=== PATIENT | female | born 1965 | race African-American/Black ===

== ENCOUNTER 2017-07-30 10:24 | Day surgery (SDC) | payer MEDICARE, OTHER ==
[2017-07-29 12:14] VITALS: BMI 30.4
--- NOTE | 2017-07-30 08:19 | P.GSHP ---
History of Present Illness H&P Date: 07/30/17 CHIEF COMPLAINT: GERD and colon screen HISTORY OF PRESENT ILLNESS: The patient is a 51-year-old female who presents reports gastroesophageal reflux disease and need for colon screen. Upper and lower endoscopy were offered for further evaluation and management. PAST MEDICAL HISTORY: Please see list. PAST SURGICAL HISTORY: Please see list. MEDICATIONS: Please see list. ALLERGIES: Please see list. SOCIAL HISTORY: No illicit drug use FAMILY HISTORY: No reports of Crohn disease or ulcerative colitis. REVIEW OF ORGAN SYSTEMS: CONSTITUTIONAL: No reports of fevers or chills. GI: Denies any blood in stools or constipation. PHYSICAL EXAM: VITAL SIGNS: Stable GENERAL: Well-developed pleasant in no acute distress. HEENT: No scleral icterus. Extraocular movements grossly intact. Moist buccal mucosa. NECK: Supple without lymphadenopathy. CHEST: Unlabored respirations. Equal bilateral excursions. CARDIOVASCULAR: Regular rate and rhythm. Distal 2+ pulses. ABDOMEN: Soft, nondistended. MUSCULOSKELETAL: No clubbing, cyanosis, or edema. ASSESSMENT: 1. Gastroesophageal reflux disease 2. Colon screen. PLAN: 1. Recommend proceeding with an upper and lower endoscopy Past Medical History Past Medical History: Musculoskeletal Disorder, Osteoarthritis (OA) Additional Past Medical History / Comment(s): IBS, HX heart murmur, osteoarthritis, degenerative disc disease of the lumbar spine, spinal stenosis, BEING TESTED FOR sleep apnea. CHILDHOOD ASTHMA, ANEMIA HAS HAD IRON INFUSIONS History of Any Multi-Drug Resistant Organisms: None Reported Past Surgical History: Cholecystectomy, Orthopedic Surgery, Tonsillectomy Additional Past Surgical History / Comment(s): HAMMER TOE SX Past Anesthesia/Blood Transfusion Reactions: No Reported Reaction Smoking Status: Never smoker - Past Family History Mother Family Medical History: No Reported History Medications and Allergies Home Medications Medication Instructions Recorded Confirmed Type lamoTRIgine [LaMICtal] 200 mg PO DAILY 09/09/16 07/29/17 History Ibuprofen [Advil] 200 - 800 mg PO TID PRN 03/14/17 07/29/17 History Allergies Allergy/AdvReac Type Severity Reaction Status Date / Time No Known Allergies Allergy Verified 07/29/17 12:10
[~2017-07-30 10:24] MED LIST: LACTATED RINGERS 1,000 ML IV ONE
[2017-07-30 11:21] VITALS: TEMP 97.3
[2017-07-30] MEDS ORDERED: LIDOCAINE 1% 20 ML VIAL (10MG/ML) FOR IV START INTRADERMA ONE (11:31)
[2017-07-30] MEDS ORDERED: PROPOFOL 10 MG/ML 20 ML VIAL IV ONE (11:51)
[2017-07-30] MEDS ORDERED: LIDOCAINE 1% INJ 10MG/ML (20 ML MDV) ONE (11:51)
--- NOTE | 2017-07-30 11:57 | P.HPADDEND ---
H&P Addendum H&P Addendum Date: 07/30/17 Patient arrived late. We'll proceed with scopes.
--- NOTE | 2017-07-30 12:24 | P.PCN ---
Date of Procedure: 07/30/17 Preoperative Diagnosis: Postoperative Diagnosis: Procedure(s) Performed: Implants: Indications for Procedure: Operative Findings: Description of Procedure: PREOPERATIVE DIAGNOSIS: Colonoscopy screening. POSTOPERATIVE DIAGNOSIS: Colonoscopy screening. OPERATION: Colonoscopy to the ascending colon. SURGEON: Peggy Manjarrez MD. ANESTHESIA: MAC. INDICATIONS: The patient is a 51-year-old female who presents for colonoscopy screening. Benefits and risks were described and informed consent was obtained. DESCRIPTION OF PROCEDURE: The patient had undergone Gatorade, MiraLAX and Dulcolax prep. She had been brought into the operating room and laid in the left lateral decubitus position. After adequate intravenous sedation, the rectum was examined with 2% lidocaine jelly. No external hemorrhoids were encountered. The rectal tone was within normal limits. No lesions were palpated in the rectal vault. An Olympus colonoscope was advanced until the ileocecal valve and appendiceal orifice were clearly viewed. The prep was excellent with clear visualization of the mucosal folds. The scope was removed with visualization of each mucosal fold. No scattered diverticulosis was encountered. No colonic polyps were found. No evidence of focal colitis was found. Retroflexion of the scope demonstrated grade 1 internal hemorrhoids without active bleeding or inflammation. The colon was desufflated. The patient had tolerated the procedure well. Withdrawal time was over 6 minutes. FINDINGS: Internal hemorrhoids, grade 1 No external prolapsed hemorrhoids. No arteriovenous malformations. No adenomatous polyps. No focal colitis. RECOMMENDATIONS: Lower endoscopy in 10 years, 202, per screening guidelines; however down to 5 years with family history of colon polyps or cancer.
--- NOTE | 2017-07-30 12:28 | P.PCN ---
Date of Procedure: 07/30/17 Preoperative Diagnosis: Postoperative Diagnosis: Procedure(s) Performed: Implants: Indications for Procedure: Operative Findings: Description of Procedure: PREOPERATIVE DIAGNOSIS: Gastroesophageal reflux disease. POSTOPERATIVE DIAGNOSIS: Erosive esophagitis. Gastritis, superficial and chronic. Gastroesophageal reflux disease. Diaphragmatic hiatal hernia without obstruction. OPERATION: Esophagogastroduodenoscopy with biopsies along antrum. SURGEON: Peggy Manjarrez MD ANESTHESIA: MAC. INDICATIONS: The patient is a 51-year-old female who presents with a history of reflux disease. Benefits and risks of the procedure were described. Informed consent was obtained. DESCRIPTION: The patient was brought into the endoscopy suite and laid in the left lateral decubitus position. An Olympus gastroscope was passed along the posterior oropharynx down to the distal esophagus where the squamocolumnar junction was encountered at 35 cm from the incisors. The stomach was entered and no bile reflux was found. Additional findings are listed below. Biopsies with cold forceps were obtained of the antrum. The first through third portion of the duodenum was examined and unremarkable. Retroflexion of the scope confirmed Hill grade 4 lower esophageal valve. The squamocolumnar junction demostrated acute and chronic LA grade C erosive esophagitis. The stomach was desufflated. The patient tolerated the procedure well. FINDINGS: Squamocolumnar junction 35 cm from the incisors. Diaphragmatic hiatus at 40 cm. Hiatal hernia 5 cm, fixed, type III. Hill grade 4 lower esophageal valve. LA grade C erosive esophagitis. Mild duodenitis. Acute and chronic gastritis. RECOMMENDATIONS: Start medical therapy. Further recommendations pending results of pathology report. Repeat upper endoscopy in 4 weeks. Will benefit from antireflux surgical procedure Plan - Discharge Summary New Discharge Prescriptions: New Omeprazole 40 mg PO DAILY #30 capsule. No Action lamoTRIgine [LaMICtal] 200 mg PO DAILY Ibuprofen [Advil] 200 - 800 mg PO TID PRN PRN Reason: Pain Discharge Medication List lamoTRIgine [LaMICtal] 200 mg PO DAILY 09/09/16 [History] Ibuprofen [Advil] 200 - 800 mg PO TID PRN 03/14/17 [History] Omeprazole 40 mg PO DAILY #30 capsule. 07/30/17 [Rx] Patient Instructions/Handouts: *[facility] - (Anesthesia) Endoscopy Discharge Instructions, Hiatal Hernia (GEN), Gastritis (GEN), Upper Endoscopy (DC), Esophagitis (GEN) Discharge Disposition: HOME SELF-CARE
[2017-07-30 12:29] VITALS: RESP 18
[2017-07-30 12:53] VITALS: BP 120/78; PULSE 65
== END 2017-07-30 13:12 | disposition home or self-care (01) ==
LOC: ORWHC2ENDO 10:24
PROVIDERS: ATTEND Surgery Plastic and Reconstructive Surgery
DX: Z12.11 Encounter for screening for malignant neoplasm of colon (principal); K64.0 First degree hemorrhoids; K29.50 Unspecified chronic gastritis without bleeding; K22.10 Ulcer of esophagus without bleeding; K44.9 Diaphragmatic hernia without obstruction or gangrene; K21.9 Gastro-esophageal reflux disease without esophagitis; Z79.899 Other long term (current) drug therapy
CPT/HCPCS: 81025; 88305; 88342; 43239; J2001; J2704; G0121

== ENCOUNTER → 2017-10-01 | Outpatient (CLI) | payer MEDICARE, OTHER ==
[2017-10-01 10:38] LABS: CH 23.3; CHCM 29.7; HCT 34.8 % (34.0-46.0); HGB 10.4 gm/dL (11.4-16.0); Hypochromasia Marked; MCH 23.5 pg (25.0-35.0); MCHC 29.8 g/dL (31.0-37.0); MCV 78.9 fL (80.0-100.0); Mean Platelet Volume 7.5; RBC 4.41 m/uL (3.80-5.40); RDW 15.4 % (11.5-15.5); WBC 7.2 k/uL (3.8-10.6)
== END ==
LOC: LABPAT 10:00
PROVIDERS: ATTEND Surgery Plastic and Reconstructive Surgery
DX: Z01.812 Encounter for preprocedural laboratory examination (principal); K44.9 Diaphragmatic hernia without obstruction or gangrene
CPT/HCPCS: 85027

== ENCOUNTER → 2017-10-08 | Outpatient (CLI) | payer MEDICARE, OTHER ==
[~2017-10-08] MED LIST changes: -LACTATED RINGERS 1,000 ML IV ONE; +REGADENOSON 0.4 MG/5 ML SYRINGE IV ONE
--- NOTE | 2017-10-08 11:14 | NM ---
EXAMINATION TYPE: NM stress lexiscan cardiolite DATE OF EXAM: 10/08/2017 COMPARISON: NONE HISTORY: Abnormal EKG TECHNIQUE: After the intravenous administration of 11 mCi Tc 99m Sestamibi - Cardiolite resting SPEC T images acquired 45 minutes post injection. The patient received 0.4mg Lexiscan, 28.6 mCi Tc 99m Sestamibi - Stress images obtained [address] injection FINDINGS: Review of stress and rest SPECT images demonstrates no distinct perfusion abnormality. Gated analysi s shows normal wall motion with an estimated left ventricular ejection fraction of 50 %. IMPRESSION: No scintigraphic evidence for reversible ischemia.
--- NOTE | 2017-10-08 12:03 | EST ---
EXERCISE STRESS AGE: 51 SEX: F HT: 5' 8" WT: 250 PROTOCOL: Lexiscan Cardiolite Stress Test HEART RATE REST: 68 BLOOD PRESSURE REST: 154/91 MAXIMUM HEART RATE ACHIEVED: 68 MAXIMUM BLOOD PRESSURE: 124/80 85% MPHR: 143 100% MPHR: 165 INDICATIONS: Preoperative. CLINICAL INFORMATION: A Lexiscan nuclear study was performed. Patient was given Lexiscan injection over a period of 15 seconds. Peak heart rate of 68 was achieved, maximum blood pressure 124/80 mmHg was noted. Resting EKG shows normal sinus rhythm with normal repair interval and QRS duration and normal ST-T waves. Intermittent PVCs were noted. No ST-segment depression suggestive of ischemia is noted. The results of the nuclear study will follow. MIKALA / BHARATIN: [id number] /
== END ==
LOC: RADNMMAIN 07:30
PROVIDERS: ATTEND Internal Medicine
DX: R94.31 Abnormal electrocardiogram [ECG] [EKG] (principal)
CPT/HCPCS: 93017; 78452; A9500; J2785

== ENCOUNTER → 2017-10-24 | Outpatient (CLI) | payer MEDICARE, OTHER ==
--- NOTE | 2017-10-24 13:23 | US ---
EXAMINATION TYPE: US abdomen complete DATE OF EXAM: 10/24/2017 COMPARISON: CT 09/09/2016 CLINICAL HISTORY: Abn liver function study R94.5. Difficult and limited exam due to overlying bowel g as EXAM MEASUREMENTS: Liver Length: 16.9 cm Gallbladder Wall: Surgically absent cm CBD: 0.8 cm Spleen: 7.4 cm Right Kidney: 9.1 x 4.0 x 4.2 cm Left Kidney: 9.3 x 5.8 x 3.3 cm Pancreas: Tail obscured by overlying bowel gas. Duct visualized measuring 0.2 cm Liver: wnl Gallbladder: Surgically absent Evidence for sonographic Ferrari's sign: No CBD: wnl for postcholecystectomy Spleen: wnl as visualized, difficult visualization due overlying bowel gas Right Kidney: No hydronephrosis or masses seen Left Kidney: No hydronephrosis or masses seen. Difficult visualization due to overlying bowel gas Upper IVC: wnl Abd Aorta: wnl The liver is homogenous. The intrahepatic portion of the IVC and proximal abdominal aorta are within normal limits. Common bile duct is unremarkable. The visualized portions of the pancreas are homog enous. The spleen is unremarkable. Kidneys are symmetric and free of hydronephrosis. No renal lesi ons are seen. IMPRESSION: No distinct abnormality appreciated.
== END | disposition home or self-care (01) ==
LOC: RADUSWWP 12:17
PROVIDERS: ATTEND Internal Medicine
DX: R94.5 Abnormal results of liver function studies (principal)
CPT/HCPCS: 76700